=== PATIENT | female | born 1965 | race Caucasian/White ===

== ENCOUNTER 2019-12-26 06:56 | Day surgery (SDC) | payer OTHER ==
[~2019-12-26] VITALS: Ht 154.9 cm; Wt 50.8 kg
[2019-12-26 07:24] VITALS: BP 128/72
[2019-12-26 17:07] VITALS: BP 111/62
== END 2019-12-26 16:45 | disposition home or self-care (01) ==
LOC: DS 06:56 → MA 08:00 → DS 08:00
DX: C50.611 Malignant neoplasm of axillary tail of right female breast (principal); Z79.899 Other long term (current) drug therapy; Z98.890 Other specified postprocedural states
CPT/HCPCS: 88329; 88344; 88361; J0690; J2001; J2175; J2250; J2405; J2704; J3010; J3490; J7030; Q9968